=== PATIENT | male | born 2000 | race Two or more races ===

== ENCOUNTER 2020-07-19 23:03 | Emergency (ER) | payer OTHER ==
[~2020-07-19] VITALS: Ht 170.2 cm; Wt 51.3 kg
[2020-07-19] MEDS ORDERED: diphenhdrAMINE HCL 25 MG CAP PO ONE (23:15)
[2020-07-20] MEDS ORDERED: EPINEPHrine HCL 1 MG/1 ML AMP SC ONE (00:45)
[2020-07-20] MEDS ORDERED: methylPREDNISolone SOD SUCC 125 MG/2 ML VL IM ONE (00:45)
[2020-07-20 01:18] VITALS: BP 109/72
== END 2020-07-20 01:31 | disposition home or self-care (01) ==
LOC: ER 23:03
DX: T78.40XA Allergy, unspecified, initial encounter (principal); L50.9 Urticaria, unspecified; X58.XXXA Exposure to other specified factors, initial encounter; Y93.89 Activity, other specified; Y92.89 Other specified places as the place of occurrence of the external cause; Y99.8 Other external cause status
CPT/HCPCS: 96372; 99284; J0171; J2930